=== PATIENT | female | born 1960 | race Hispanic/Latino ===

== ENCOUNTER 2023-01-13 08:44 | Day surgery (SDC) | payer OTHER ==
[~2023-01-13] VITALS: Ht 149.9 cm; Wt 64.4 kg
[~2023-01-13 08:44] MED LIST: ALENDRONATE SOD70 MG PO; ASPIRIN 81 LOW81 MG PO; CARVEDILOL12.5 MG PO; ENALAPRIL5 MG PO; FISH OIL1 CAP PO; JANUVIA100 MG PO; LOPID600 MG PO; METFORMIN HCL500 M1 PO; MICARDIS80 MG PO; MULTIVITAMI9 PO; NORVASC10 M1 PO
[2023-01-13 10:33] VITALS: BP 114/59
== END 2023-01-13 10:45 | disposition home or self-care (01) | DRG 395 ==
LOC: ENDO 08:44 → ORM 10:00 → ENDO 10:40
PROVIDERS: ATTEND Surgery
PROC: 0DJD8ZZ Inspection of Lower Intestinal Tract, Via Natural or Artificial Opening Endoscopic (ICD-10-PCS; principal; 2023-01-13)
DX: K64.8 Other hemorrhoids (principal); I10 Essential (primary) hypertension; E11.9 Type 2 diabetes mellitus without complications; Z79.84 Long term (current) use of oral hypoglycemic drugs